=== PATIENT | female | born 1965 | race Caucasian/White ===

== ENCOUNTER 2016-12-25 13:45 | Emergency (ER) | payer OTHER ==
--- NOTE | 2016-12-25 14:22 | ED ---
Psych HPI - General Chief Complaint: Psychiatric Symptoms Stated Complaint: mental health Time Seen by Provider: 12/25/16 13:50 Source: patient, family, RN notes reviewed Mode of arrival: ambulatory Limitations: no limitations - History of Present Illness Initial Comments: 51-year-old female presents emergency Department for psychiatric evaluation. Patient is here with mother and the patient believes that she has bugs crawling out of her skin. Patient has been seen several times for this and given Bactroban cream, Keflex and now Bactrim. She also was on steroids. Patient states that she has tried putting chemicals on her skin including bleach, flea killer because she believes that things are crawling out of her. Patient states that she has not used any new soaps or lotions or detergents though. Patient states his son is at this time she does picks at the areas because she feels the worms crawling around. Patient does take medications for her bipolar disorder and depression. Patient states she's been taking her medications as directed. Denies any illicit drug use. Denies any suicidal or homicidal thoughts. - Related Data Home Medications Medication Instructions Recorded Confirmed Topiramate [Topamax] 100 mg PO BID 06/29/15 12/25/16 ALPRAZolam [Xanax] 1 mg PO TID 12/25/16 12/25/16 Albuterol Sulfate [Ventolin Hfa] 1 - 2 puff INHALATION RT-Q6H PRN 12/25/1612/25 Budesonide/Formoterol Fumarate 2 puff INHALATION RT-BID 12/25/16 12/25/16 [Symbicort 80-4.5 Mcg Inhaler] Butalb/APAP/Caff 50-325-40Mg 1 tab PO Q6H PRN 12/25/16 12/25/16 [Fioricet 50-325-40] Cetirizine HCl [Zyrtec] 10 mg PO DAILY 12/25/16 12/25/16 Gabapentin [Neurontin] 300 mg PO TID 12/25/16 12/25/16 HYDROcodone/APAP 7.5-325MG [Helen 1 tab PO Q8H 12/25/16 12/25/16 7.5-325] Lisdexamfetamine Dimesylate 50 mg PO QAM 12/25/16 12/25/16 [Vyvanse] Methadone [Dolophine] 5 mg PO TID 12/25/16 12/25/16 Mupirocin Calcium 2% Cream 1 applic TOPICAL TID 12/25/16 12/25/16 [Bactroban 2% Cream] Sulfamethox-Tmp 800-160Mg [Bactrim 1 tab PO Q12HR 12/25/16 12/25/16 DS 800-160 mg] Topiramate [Topamax] 50 mg PO BID 12/25/16 12/25/16 Venlafaxine HCl [Effexor XR] 75 mg PO DAILY 12/25/16 12/25/16 Allergies Allergy/AdvReac Type Severity Reaction Status Date / Time methocarbamol [From Robaxin] Allergy Unknown Verified 12/25/16 14:16 NSAIDS (Non-Steroidal Allergy Unknown Verified 12/25/16 14:16 Anti-Inflamma Review of Systems ROS Statement: Those systems with pertinent positive or pertinent negative responses have been documented in the HPI. ROS Other: All systems not noted in ROS Statement are negative. Past Medical History Past Medical History: Fibromyalgia Additional Past Medical History / Comment(s): Back and neck Injury, History of Any Multi-Drug Resistant Organisms: None Reported Past Surgical History: Back Surgery Past Psychological History: Anxiety, PTSD Smoking Status: Current every day smoker Past Alcohol Use History: Occasional Past Drug Use History: None Reported General Exam Limitations: no limitations General appearance: alert, in no apparent distress Head exam: Present: atraumatic, normocephalic, normal inspection Neck exam: Present: normal inspection. Absent: tenderness, meningismus, lymphadenopathy Respiratory exam: Present: normal lung sounds bilaterally. Absent: respiratory distress, wheezes, rales, rhonchi, stridor Cardiovascular Exam: Present: regular rate, normal rhythm, normal heart sounds. Absent: systolic murmur, diastolic murmur, rubs, gallop, clicks Neurological exam: Present: alert, oriented X3, CN II-XII intact Psychiatric exam: Present: anxious Skin exam: Present: rash (There are multiple areas of excoriations with slight papular rash in scabbing. There is 2 larger areas noted on the chin and the right side of neck that has a defined border with erythematous base.) Course Vital Signs 12/25/16 13:46 Temperature 98.0 F Pulse Rate 100 Respiratory 20 Rate Blood Pressure 132/69 O2 Sat by Pulse 98 Oximetry Medical Decision Making - Medical Decision Making 51-year-old female presented for tactile hallucinations. Patient was evaluated by [facility]. Patient will follow-up as scheduled appointment. Patient will be given publications manager for her rash low this is caused by herself at this time. Patient will be discharged with close follow-up return parameters were discussed. Disposition Clinical Impression: Bipolar disorder, Tactile hallucinations, Rash Disposition: HOME SELF-CARE Condition: Stable Instructions: Acute Rash (ED) Additional Instructions: Please return to the Emergency Department if symptoms worsen or any other concerns. Referrals: None,Stated [Primary Care Provider] - 1-2 days Shamika Ware MD [STAFF PHYSICIAN] - 1-2 days Time of Disposition: 16:50
[2016-12-25] MEDS ORDERED: NICOTINE 21MG/24HR PATCH TRANSDERM STA (15:18)
[2016-12-25 16:54] VITALS: BP 135/80; PULSE 92; RESP 18; TEMP 97.5
== END 2016-12-25 17:01 | disposition home or self-care (01) ==
LOC: EC 13:45
DX: F31.9 Bipolar disorder, unspecified (principal); R44.2 Other hallucinations; R21 Rash and other nonspecific skin eruption; M79.7 Fibromyalgia; F43.10 Post-traumatic stress disorder, unspecified; F41.9 Anxiety disorder, unspecified; F17.200 Nicotine dependence, unspecified, uncomplicated; Z79.51 Long term (current) use of inhaled steroids; Z79.891 Long term (current) use of opiate analgesic; Z79.899 Other long term (current) drug therapy; Z88.6 Allergy status to analgesic agent; Z88.8 Allergy status to other drugs, medicaments and biological substances
CPT/HCPCS: 82075; 99284; S4990